=== PATIENT | female | born 1955 | race American Indian/Alaskan Native ===

== ENCOUNTER 2017-03-10 11:32 | Outpatient (CLI) | payer BC ==
--- NOTE | 2017-03-10 14:41 | Magnetic Resonance Report ---
MRI LOWER EXTREMITY JOINT RIGHT WITHOUT CONTRAST HISTORY: Right knee pain, osteoarthritis of right knee. TECHNIQUE: Multisequence, multiplanar MRI without contrast. FINDINGS: A large horizontal cleavage tear is identified throughout the body of the lateral meniscus. There is relative sparing of the posterior horn of the lateral meniscus. The medial meniscus is within normal limits. Advanced cartilage thinning and joint space narrowing is identified in the lateral compartment of the right knee. There appears to be near complete loss of cartilage. No osteochondral defect is identified. There is subchondral bone marrow edema in the lateral femoral condyle and lateral tibial plateau consistent with bone contusion. The remaining bone marrow signal is within normal limits. The ACL, PCL, MCL, LCL complex and extensor complex are intact. The popliteus is unremarkable. A small joint effusion is identified. No popliteal cyst. IMPRESSION: Horizontal cleavage tear in the body of the lateral meniscus with advanced osteoarthritic changes in the lateral compartment. Small joint effusion.
== END 2017-03-10 11:33 | disposition home or self-care (01) ==
LOC: MRI 11:32
PROVIDERS: ATTEND Family Medicine Adult Medicine
DX: M17.11 Unilateral primary osteoarthritis, right knee (principal); S83.281A Other tear of lateral meniscus, current injury, right knee, initial encounter; M25.461 Effusion, right knee; X58.XXXA Exposure to other specified factors, initial encounter; Y93.89 Activity, other specified; Y92.89 Other specified places as the place of occurrence of the external cause; Y99.8 Other external cause status
CPT/HCPCS: 73721